=== PATIENT | female | born 1990 | race African-American/Black ===

== ENCOUNTER 2016-08-17 10:43 | Emergency (ER) | payer OTHER ==
[~2016-08-17] VITALS: Ht 167.6 cm; Wt 108.9 kg
[~2016-08-17 10:43] MED LIST: ADVAIR DISKUS 21 DSK IH; AZITHROMYCIN; CLARITIN10 M1 PO; PREDNISONE20 MG PO; PROVENTIL0.09 MG/A1 IH; PROVENTIL2.5 MG/3 M INH; QVAR HFA M40 MCG/ACT INH; SINGULAIR10 MG PO; SYMBICORT1 AE1 IH; TYLENOL ES500 MG PO; XOPENEX0.63 MG/3 INH; XOPENEX1.25 MG/0. IH; ZITHROMAX250 MG PO
[2016-08-17 11:23] VITALS: BP 131/77
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
--- NOTE | 2016-08-17 12:13 | NUR ---
DR. HARRIS AT BEDSIDE
[2016-08-17] MEDS ORDERED: traMADol 50 MG TAB PO ONE (12:35)
[2016-08-17 13:02] VITALS: BP 138/75
--- NOTE | 2016-08-17 13:02 | NUR ---
Patient discharged with v/s stable. Written and verbal after care instructions given and explained. Patient alert, oriented and verbalized understanding of instructions. Ambulatory with steady gait. All questions addressed prior to discharge. ID band removed. Patient advised to follow up with PMD. Rx of TRAMADOL given. Patient educated on indication of medication including possible reaction and side effects. Opportunity to ask questions provided and answered.PT SLING INTACT ON RIGHT ARM, PT CALM, SMILING, MOTHER ASSISTED PT .
== END 2016-08-17 13:02 | disposition home or self-care (01) ==
LOC: MED 10:43
DX: S46.911A Strain of unspecified muscle, fascia and tendon at shoulder and upper arm level, right arm, initial encounter (principal); J45.909 Unspecified asthma, uncomplicated; Z88.6 Allergy status to analgesic agent; Z88.5 Allergy status to narcotic agent; W18.30XA Fall on same level, unspecified, initial encounter; Y93.89 Activity, other specified; Y92.89 Other specified places as the place of occurrence of the external cause; Y99.8 Other external cause status

== ENCOUNTER 2016-11-03 12:56 | Emergency (ER) | payer OTHER ==
[~2016-11-03] VITALS: Ht 167.6 cm; Wt 108.9 kg
[2016-11-03 13:15] VITALS: BP 153/64
--- NOTE | 2016-11-03 14:20 | NUR ---
PATIENT LEFT WITHOUT BEING SEEN BY DR. HARRIS. NO FURTHER CARE PROVIDED FOR PATIENT.
== END 2016-11-03 14:20 | disposition left against medical advice (07) ==
LOC: MED 12:56
DX: H57.12 Ocular pain, left eye (principal); Z53.21 Procedure and treatment not carried out due to patient leaving prior to being seen by health care provider

== ENCOUNTER 2016-11-04 20:17 | Emergency (ER) | payer OTHER ==
[~2016-11-04] VITALS: Ht 167.6 cm; Wt 108.9 kg
[~2016-11-04 20:17] MED LIST changes: +ACET-6134 PO; -ADVAIR DISKUS 21 DSK IH; -AZITHROMYCIN; +BECL0.0458 INH; -CLARITIN10 M1 PO; +LEVA1.2530 IH; +LORA10TA19 PO; +MONT10TA35 PO; -PREDNISONE20 MG PO; +PRON INH; -PROVENTIL0.09 MG/A1 IH; -PROVENTIL2.5 MG/3 M INH; -QVAR HFA M40 MCG/ACT INH; -SINGULAIR10 MG PO; -SYMBICORT1 AE1 IH; -TYLENOL ES500 MG PO; -XOPENEX0.63 MG/3 INH; -XOPENEX1.25 MG/0. IH; -ZITHROMAX250 MG PO; +[UNRECOGNIZED DRUG - CODE] INH
--- NOTE | 2016-11-04 21:24 | NUR ---
TO ER BED 6
--- NOTE | 2016-11-04 21:42 | NUR ---
c/o diff breathing x 2 days, chest hurts when she coughs and breaths. left eye has been swollen since wednesday, not sure what happened. pt has hx of asthma. DENIES N/V/D; SKIN IS PINK/WARM/DRY; AAOX4 WITH EVEN AND STEADY GAIT; PT DENIES ANY FEVER; PATIENT STATES PAIN OF 8/10 AT THIS TIME; VSS; PATIENT POSITIONED FOR COMFORT; HOB ELEVATED; BEDRAILS UP X2; BED DOWN. ER MD MADE AWARE OF PT STATUS.
[2016-11-04] MEDS ORDERED: ALBUTEROL SULFATE/IPRATROPIU 3 ML SOL IH ONE (22:00)
[2016-11-04] MEDS ORDERED: traMADol 50 MG TAB PO ONE (22:00)
--- NOTE | 2016-11-04 22:09 | NUR ---
Respiratory Therapist at bedside for respiratory intervention. Patient tolerated .
[2016-11-04] MEDS ORDERED: TETRACAINE 0.5% OPTH SOL 2 ML BTL OP ONE (22:20)
--- NOTE | 2016-11-04 23:34 | NUR ---
pt to ct via [facility] in stable condition
--- NOTE | 2016-11-04 23:52 | NUR ---
PT RETURNED FROM CT VIA WC
--- NOTE | 2016-11-05 00:41 | NUR ---
Patient discharged with v/s stable. Written and verbal after care instructions given and explained. Patient alert, oriented and verbalized understanding of instructions. Ambulatory with steady gait. All questions addressed prior to discharge. ID band removed. Patient advised to follow up with PMD. Rx of PREDNISONE, TRAMADOL AND BACTRIM given. Patient educated on indication of medication including possible reaction and side effects. Opportunity to ask questions provided and answered.
[2016-11-05 00:42] VITALS: BP 100/69
== END 2016-11-05 00:42 | disposition home or self-care (01) ==
LOC: MED 20:17
DX: H00.036 Abscess of eyelid left eye, unspecified eyelid (principal); J45.909 Unspecified asthma, uncomplicated; Z88.5 Allergy status to narcotic agent; Z88.6 Allergy status to analgesic agent; Z79.899 Other long term (current) drug therapy
CPT/HCPCS: 70486; 81002; 81025; 94640; 99284; J7620

== ENCOUNTER 2017-12-04 09:46 | Emergency (ER) | payer OTHER ==
[~2017-12-04] VITALS: Ht 167.6 cm; Wt 111.1 kg
[~2017-12-04 09:46] MED LIST changes: +LEVA0.6318 INH; -[UNRECOGNIZED DRUG - CODE] INH
[2017-12-04 09:54] VITALS: BP 129/87
--- NOTE | 2017-12-04 10:00 | NUR ---
Patient ambulated to bed 12. RN evaluating patient at bedside.
--- NOTE | 2017-12-04 10:02 | NUR ---
REPORT GIVEN TO YAEL PASTOR.
--- NOTE | 2017-12-04 10:25 | NUR ---
pateint came in with pain to her lower abd region and pain in her lower back. patient states that she has been on her menstration for 18 day. start of menstral was November 16 and has heavy bleeding. she complains of spasms in her rectum and vagina and sharp pain in stomach and radiates to her lower back. patients pain level is a 7/10. pt has history of pcos and and menorrhagia. pt has allergies to morhine, ibuprofin and demerol.
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
--- NOTE | 2017-12-04 10:33 | NUR ---
is with patient
[2017-12-04] MEDS ORDERED: NACL 0.9% 1,000 ML IV ONE (10:35)
--- NOTE | 2017-12-04 11:10 | NUR ---
pt went to [facility]
[2017-12-04 11:12] LABS: BASOPHILS # (AUTO) 0.1 K/uL (0.00-0.22); LYMPHOCYTES # (AUTO) 2.2 K/uL (2.5-16.5); RED CELL DISTRIBUTION WIDTH 15.7 % (11.6-13.7)
[2017-12-04 11:17] LABS: BASOPHILS % (AUTO) 1.2 % (0.0-2.0); EOSINOPHILS # (AUTO) 0.2 K/uL (0-0.4); EOSINOPHILS % (AUTO) 2.9 % (0.0-4.0); HEMATOCRIT 38.7 % (36-48); HEMOGLOBIN 11.9 g/dL (12.0-16.0); LYMPHOCYTES % (AUTO) 28.5 % (20.5-51.1); MEAN CORPUSCULAR HEMOGLOBIN 22 pg (27-31); MEAN CORPUSCULAR HGB CONC 31 g/dL (33-37); MEAN CORPUSCULAR VOLUME 69.9 fL (80-94); MONOCYTES # (AUTO) 0.7 K/uL (0.8-1.0); MONOCYTES % (AUTO) 9.3 % (1.7-9.3); NEUTROPHILS # (AUTO) 4.5 K/uL (1.8-7.7); NEUTROPHILS % (AUTO) 58.1 % (42.2-75.2); PLATELET COUNT (AUTO) 289 K/uL (140-450); RED BLOOD CELL COUNT(AUTO) 5.54 MIL/uL (4.20-5.40); WHITE BLOOD COUNT (AUTO) 7.7 K/uL (4.8-10.8)
[2017-12-04 11:18] LABS: BILIRUBIN,URINE NEGATIVE (NEGATIVE); BLOOD, URINE 3+ (NEGATIVE); COLOR,URINE YELLOW (YELLOW); LEUKOCYTE ESTERASE ,URINE NEGATIVE (NEGATIVE); NITRITE, URINE NEGATIVE (NEGATIVE); UGLUCOSE NEGATIVE (NEGATIVE)
[2017-12-04 11:23] LABS: PROTHROMBIN TIME 10.8 secs (10.8-13.4)
[2017-12-04 11:26] LABS: WBC,URINE 0-5 (RARE) /HPF (0-5)
[2017-12-04 11:27] LABS: APPEARANCE,URINE SLIGHTLY HAZY (CLEAR); RBC,URINE 20-50 /HPF (0-5)
[2017-12-04 11:28] LABS: YEAST,URINE Few /HPF (None Seen)
--- NOTE | 2017-12-04 11:37 | NUR ---
patient is back from ultrasound, resting comfortably
--- NOTE | 2017-12-04 12:10 | NUR ---
iv ns 500 bolus infusion complete., pt tolerated well.
[2017-12-04 13:08] VITALS: BP 133/75
--- NOTE | 2017-12-04 13:08 | NUR ---
Patient discharged with v/s stable. Written and verbal after care instructions given and explained. Patient alert, oriented and verbalized understanding of instructions. Ambulatory with steady gait. All questions addressed prior to discharge. ID band removed. Patient advised to follow up with PMD. Rx of FIOROCET given. Patient educated on indication of medication including possible reaction and side effects. Opportunity to ask questions provided and answered.
== END 2017-12-04 13:08 | disposition home or self-care (01) ==
LOC: MED 09:46
DX: N93.8 Other specified abnormal uterine and vaginal bleeding (principal); J45.909 Unspecified asthma, uncomplicated; E28.2 Polycystic ovarian syndrome; Z79.899 Other long term (current) drug therapy; Z88.5 Allergy status to narcotic agent; Z88.8 Allergy status to other drugs, medicaments and biological substances
CPT/HCPCS: 36415; 76830; 81001; 81025; 84702; 85025; 85610; 85730; 86900; 86901; 87086; 96360; 99285; J7030; Q0092

== ENCOUNTER 2018-04-22 10:13 | Emergency (ER) | payer OTHER ==
[~2018-04-22] VITALS: Ht 167.6 cm; Wt 114.8 kg
[2018-04-22 10:20] VITALS: BP 139/77
[2018-04-22] MEDS ORDERED: ACETAMINOPHEN EXTRA STRENGTH 500 MG TAB PO ONE (11:00)
[2018-04-22] MEDS ORDERED: traMADol 50 MG TAB PO ONE (11:00)
[2018-04-22 11:28] VITALS: BP 139/65
== END 2018-04-22 11:28 | disposition home or self-care (01) ==
LOC: MED 10:13
DX: S93.402D Sprain of unspecified ligament of left ankle, subsequent encounter (principal); S93.602D Unspecified sprain of left foot, subsequent encounter; J45.909 Unspecified asthma, uncomplicated; Z88.6 Allergy status to analgesic agent; Z88.5 Allergy status to narcotic agent; Z79.899 Other long term (current) drug therapy; Z79.1 Long term (current) use of non-steroidal anti-inflammatories (NSAID); X58.XXXD Exposure to other specified factors, subsequent encounter
CPT/HCPCS: 29515; 99283

== ENCOUNTER 2019-07-16 12:39 | Emergency (ER) | payer OTHER ==
[~2019-07-16] VITALS: Ht 167.6 cm; Wt 113.4 kg
--- NOTE | 2019-07-16 12:52 | NUR ---
PT AMBULATED TO ER BED 06
[2019-07-16 12:54] VITALS: BP 135/81
--- NOTE | 2019-07-16 13:11 | NUR ---
28 Y/O F C/O DENTAL PAIN RT UPPER MOLARS. PT STATES THE PAIN IS 8/10 X 2 DAYS. PT DENEIES N/V FEVER. PT ABLE TO OPEN AND CLOSE MOUTH WITHOUT DIFFICULTY. NO DIFFICULTIES SWALLOWING. PT STATES THE PAIN DOES NOT RADIATE FROM THE DENTAL AREA. PT POSITIONED FOR COMFORT, FAMILY MEMBER AT BEDSIDE.
[2019-07-16 13:20] VITALS: BP 135/81
== END 2019-07-16 13:21 | disposition home or self-care (01) ==
LOC: MED 12:39
DX: K04.7 Periapical abscess without sinus (principal); J45.909 Unspecified asthma, uncomplicated; Z79.899 Other long term (current) drug therapy; Z88.5 Allergy status to narcotic agent; Z88.6 Allergy status to analgesic agent
CPT/HCPCS: 99283